=== PATIENT | female | born 1935 | race Hispanic/Latino ===

== ENCOUNTER → 2020-03-04 | Outpatient (CLI) | payer MEDICARE ==
[~2020-03-04] MED LIST: REGADENOSON 0.4 MG/5 ML SYR IV ONE
--- NOTE | 2020-03-04 18:05 | Myoview Stress Test ---
DATE OF STUDY: 03/04/2020 09:14:00 Stress Test - Treadmill ONLY PROCEDURE: Rest/stress single isotope SPECT imaging with pharmacologic stress and gated SPECT imaging. INDICATION: Chest pain. PROCEDURE IN DETAIL: Pharmacologic stress testing was performed with regadenoson per protocol. The heart rate was 64 beats per minute at rest and increased to 108 beats per minute during the regadenoson infusion. The resting blood pressure was 142/73 mmHg and decreased to 128/68 mmHg, which is a normal response. The resting electrocardiogram demonstrated normal sinus rhythm. There were no ST-T wave changes suggestive of myocardial ischemia. Myocardial perfusion imaging was performed at rest following the injection of 11 mCi of tetrofosmin. At peak pharmacologic effect, the patient was injected with 31.8 mCi of tetrofosmin. Gated post-stress tomographic imaging was performed. FINDINGS: The overall quality of study is fair. Left ventricular cavity is noted to be normal size on the rest and stress studies. SPECT images demonstrate homogeneous tracer distribution throughout the myocardium. Gated SPECT imaging reveals normal myocardial thickening and wall motion. Overall, left ventricular ejection fraction was calculated to be 63%. CONCLUSION: Myocardial perfusion imaging is normal. Overall, left ventricular systolic function was normal without regional wall motion abnormalities. Damari Duong MD ABS/MODL /[id number]
== END ==
LOC: NM 08:51
PROVIDERS: ATTEND Internal Medicine Cardiovascular Disease
DX: I44.7 Left bundle-branch block, unspecified (principal); R07.9 Chest pain, unspecified
CPT/HCPCS: 78452; 93017; A9502; J2785

== ENCOUNTER 2022-08-10 11:44 | Emergency (ER) | payer MEDICARE, OTHER ==
[~2022-08-10] VITALS: Ht 162.6 cm; Wt 64.9 kg
[~2022-08-10 11:44] MED LIST changes: +HYDROCHLOROTHIA25 MG PO; +LOSARTAN POTAS100 MG PO; -REGADENOSON 0.4 MG/5 ML SYR IV ONE
[2022-08-10 12:43] LABS: BASOPHILS % 0.3 % (0.0-1.0); EOSINOPHILS # (AUTO) 0.1 (0.0-0.4); EOSINOPHILS % 1.6 % (0.0-6.0); HEMATOCRIT 30.2 % (34.2-44.1); HEMOGLOBIN 9.5 g/dL (12.0-16.0); LYMPHOCYTES # (AUTO) 1.6 (1.0-3.2); LYMPHOCYTES % 17.6 % (18.0-39.1); MEAN CORPUSCULAR HEMOGLOBIN 29.8 pg (28-32); MEAN CORPUSCULAR HGB CONC 31.5 g/dL (31-35); MEAN CORPUSCULAR VOLUME 94.7 fL (81-99); MONOCYTES # (AUTO) 0.7 (0.2-0.8); MONOCYTES % 7.9 % (4.4-11.3); NEUTROPHILS # (AUTO) 6.5 (2.1-6.9); NEUTROPHILS % 72.3 % (38.7-80.0); PLATELET COUNT 381 x10e3/uL (140-360); RED BLOOD COUNT 3.19 x10e6/uL (3.6-5.1); RED CELL DISTRIBUTION WIDTH 13.5 % (11.7-14.4)
[2022-08-10 13:25] LABS: ALBUMIN/GLOBULIN RATIO 0.9 (0.8-2.0); ANION GAP 14.1 mmol/L (8-16); CALCIUM 8.9 mg/dL (8.4-10.2); CREATININE, SERUM 1.43 mg/dL (0.57-1.11); POTASSIUM 4.1 mmol/L (3.5-5.1)
[2022-08-10 13:45] LABS: CLARITY,URINE CLEAR (CLEAR); COLOR,URINE YELLOW (YELLOW); LEUKOCYTE ESTERASE ,URINE NEGATIVE (NEGATIVE); NITRITE,URINE NEGATIVE (NEGATIVE); PROTEIN,URINE DIPSTICK NEGATIVE (NEGATIVE)
[2022-08-10 13:46] LABS: KETONES,URINE NEGATIVE (NEGATIVE); URINE UROBILINOGEN 1 mg/dL (0.2 - 1)
[2022-08-10 13:53] LABS: BACTERIA,URINE FEW /HPF; EPITHELIAL CELLS,URINE MANY /LPF; RBC,URINE 0-5 /HPF (0-5); WBC,URINE (MAN) 0-5 /HPF (0-5)
[2022-08-10 13:56] LABS: YEAST,URINE FEW
[2022-08-10] MEDS ORDERED: SODIUM CHLORIDE 0.9% 1000ML 1,000 ML IV ONE ×2 (14:00)
[2022-08-10] MEDS ORDERED: IOPAMIDOL 370 MG/ML 100 ML INFUS..BTL INJ ONE (14:36)
[2022-08-10] MEDS ORDERED: NEURONTIN100 MG PO (16:07)
[2022-08-10 16:45] VITALS: BP 149/84
== END 2022-08-10 16:18 | disposition home or self-care (01) ==
LOC: ER 12:05
DX: R10.32 Left lower quadrant pain (principal); B02.29 Other postherpetic nervous system involvement; I10 Essential (primary) hypertension; R94.31 Abnormal electrocardiogram [ECG] [EKG]
CPT/HCPCS: 36415; 74177; 80053; 81001; 83690; 84484; 85025; 93005; 99284; J7030; Q9967

== ENCOUNTER 2022-09-15 12:36 | Emergency (ER) | payer MEDICARE ==
[~2022-09-15] VITALS: Ht 162.6 cm; Wt 64.9 kg
[~2022-09-15 12:36] MED LIST changes: +NEURONTIN100 MG PO
== END 2022-09-15 14:05 | disposition home or self-care (01) ==
LOC: ER 13:55
DX: B02.29 Other postherpetic nervous system involvement (principal); I10 Essential (primary) hypertension
CPT/HCPCS: 99282